=== PATIENT | female | born 1980 | race Caucasian/White ===

== ENCOUNTER 2018-08-12 08:57 | Emergency (ER) | payer BC ==
[2018-08-12 09:07] VITALS: BP 128/87
--- NOTE | 2018-08-12 09:34 | UC ---
Throat Pain/Nasal Jarad HPI - HPI Summary HPI Summary: 38 y/o female with no PMH, no medications presents with throat pain x 24 hours , ear pain L>R, mild. nasal/ sinus congestions, no fever, chills. no body aches. Concerned about strep throat. - History of Current Complaint Chief Complaint: UCGeneralIllness Stated Complaint: SORE THROAT, EAR PAIN Time Seen by Provider: 08/12/18 09:18 Hx Obtained From: Patient Hx Last Menstrual Period: 2 weeks ago ?: No Onset/Duration: Sudden Onset, Lasting Days Severity: Moderate Pain Intensity: 4 Pain Scale Used: 0-10 Numeric Associated Signs & Symptoms: Positive: Dysphagia Related History: Seasonal Allergies - Allergies/Home Medications Allergies/Adverse Reactions: Allergies Allergy/AdvReac Type Severity Reaction Status Date / Time No Known Allergies Allergy Verified 08/12/18 09:07 Home Medications: Home Medications Dm/Acetaminophen/Doxylamine [Night Cold-Flu Relief Liq Gel] 1 each PO 08/12/18 [ History] PMH/Surg Hx/FS Hx/Imm Hx Previously Healthy: Yes - Surgical History Surgical History: None - Family History Known Family History: Positive: None - Social History Alcohol Use: Rare Substance Use Type: None Smoking Status (MU): Never Smoked Tobacco Review of Systems All Other Systems Reviewed And Are Negative: Yes Constitutional: Positive: Fatigue ENT: Positive: Sore Throat, Ear Ache, Sinus Congestion Is Patient Immunocompromised?: No Physical Exam Triage Information Reviewed: Yes Appearance: Well-Appearing, No Pain Distress, Well-Nourished Vital Signs: Initial Vital Signs Temp 97.1 F 08/12/18 09:03 Pulse 62 08/12/18 09:03 Resp 16 08/12/18 09:03 BP 128/87 08/12/18 09:03 Pulse Ox 100 08/12/18 09:03 Eyes: Positive: Conjunctiva Clear ENT: Positive: Pharyngeal erythema - minimal no exudates, Nasal congestion, TMs normal, Sinus tenderness - minimal. Negative: TM bulging, TM dull, TM red, Tonsillar swelling, Tonsillar exudate Neck: Positive: Supple, Nontender, No Lymphadenopathy. Negative: Nuchal Rigidity Respiratory: Positive: Chest non-tender, Lungs clear, Normal breath sounds, No respiratory distress, No accessory muscle use. Negative: Crackles, Rhonchi, Stridor, Wheezing Cardiovascular: Positive: RRR, No Murmur Psychological Exam: Normal Throat Pain/Nasal Course/Dx - Course Course Of Treatment: DId not meat criteria fr strep testing, conservative treatment, follow up with primary if no improvement within 2-3 days - Differential Dx/Diagnosis Differential Diagnosis/HQI/PQRI: Pharyngitis, Sinusitis, Tonsillitis, URI Provider Diagnosis: Upper respiratory infection Discharge - Sign-Out/Discharge Documenting (check all that apply): Patient Departure All imaging exams completed and their final reports reviewed: No Studies - Discharge Plan Condition: Good Disposition: HOME Patient Education Materials: Upper Respiratory Infection (ED) Referrals: No Primary Care Phys,NOPCP [Primary Care Provider] - Additional Instructions: - Increase fluids - Motrin as needed for sinus pressure - HUmidifier at night to help with drying out mucous membranes/ cough/ throat irritation - Over the counter medications for throat pain- cough drops, throat sprays - Billing Disposition and Condition Condition: GOOD Disposition: Home
== END 2018-08-12 09:30 | disposition home or self-care (01) ==
LOC: UCEAST 08:57
DX: J06.9 Acute upper respiratory infection, unspecified (principal)
CPT/HCPCS: 99211; G0463

== ENCOUNTER 2018-08-18 09:34 | Emergency (ER) | payer BC ==
[2018-08-18 10:10] VITALS: BP 117/78
--- NOTE | 2018-08-18 10:31 | UC ---
Throat Pain/Nasal Jarad HPI - HPI Summary HPI Summary: 38 yo female presents with sore throat, sinus pain/pressure/congestion, and dry cough for the last week. She tells me that she was seen her about 6 days ago and advised to try OTC methods and symptoms likely viral. Since that time her symptoms have worsened and OTC methods are not helping. She had been taking dayquill, nyquill, sudafed, and mucinex. Denies fever, chills, SOB, n/v, rash. - History of Current Complaint Chief Complaint: UCGeneralIllness Stated Complaint: SORE THROAT, PRODUCTIVE COUGH Time Seen by Provider: 08/18/18 10:19 Hx Obtained From: Patient Hx Last Menstrual Period: 08/02/18 Onset/Duration: Gradual Onset Severity: Moderate Pain Intensity: 5 Pain Scale Used: 0-10 Numeric Cough: Nonproductive - Allergies/Home Medications Allergies/Adverse Reactions: Allergies Allergy/AdvReac Type Severity Reaction Status Date / Time No Known Allergies Allergy Verified 08/18/18 10:10 Home Medications: Home Medications Norgestimate-Ethinyl Estradiol [Tri Femynor 28 Tablet] 1 tab PO DAILY 08/18/18 [ History Confirmed 08/18/18] PMH/Surg Hx/FS Hx/Imm Hx Endocrine History: Hypothyroidism - Surgical History Surgical History: None - Family History Known Family History: Positive: None - Social History Occupation: Employed Full-time Lives: With Family Alcohol Use: Rare Substance Use Type: None Smoking Status (MU): Never Smoked Tobacco Review of Systems All Other Systems Reviewed And Are Negative: Yes Constitutional: Positive: Negative Skin: Positive: Negative Eyes: Positive: Negative ENT: Positive: Sore Throat, Nasal Discharge, Sinus Congestion, Sinus Pain/ Tenderness Respiratory: Positive: Cough Cardiovascular: Positive: Negative Gastrointestinal: Positive: Negative Neurovascular: Positive: Negative Neurological: Positive: Negative Psychological: Positive: Negative Physical Exam - Summary Physical Exam Summary: GENERAL: NAD. WDWN. No pain distress. SKIN: No rashes, sores, lesions, or open wounds. HEENT: Head: AT/NC Eyes: EOM intact. Conjunctiva clear without inflammation or discharge. Ears: Hearing grossly normal. TMs intact, no bulging, erythema, or edema. Nose: Nasal mucosa mildly swollen and erythematous with clear discharge. TTP maxillary sinus. Positive post nasal drip Throat: Posterior oropharynx without exudates, erythema, or tonsillar enlargement. Uvula midline. NECK: Supple. Nontender. No lymphadenopathy. CHEST: CTAB. No r/r/w. No accessory muscle use. Breathing comfortably and in no distress. CV: RRR. Without m/r/g. Pulses intact. NEURO: Alert. PSYCH: Age appropriate behavior. Triage Information Reviewed: Yes Vital Signs: Initial Vital Signs Temp 98.8 F 08/18/18 10:08 Pulse 79 08/18/18 10:08 Resp 16 08/18/18 10:08 BP 117/78 08/18/18 10:08 Pulse Ox 100 08/18/18 10:08 Vital Signs Reviewed: Yes Throat Pain/Nasal Course/Dx - Course Course Of Treatment: Given length of symptoms and failure of OTC treatments, will treat with anbx for sinusitis/bronchitis. - Differential Dx/Diagnosis Provider Diagnosis: Sinusitis Discharge - Sign-Out/Discharge Documenting (check all that apply): Patient Departure All imaging exams completed and their final reports reviewed: No Studies - Discharge Plan Condition: Stable Disposition: HOME Prescriptions: Azithromycin TAB* [Zithromax TAB (Z-RUBEN) 250 mg #6 tabs] 2 tab PO .TODAY, THEN 1 DAILY #1 ruben Benzonatate CAP* [Tessalon 100 MG CAP*] 100 mg PO TID PRN #21 cap PRN Reason: Cough Patient Education Materials: Acute Bronchitis (ED) Forms: *Work Release Referrals: No Primary Care Phys,NOPCP [Primary Care Provider] - Additional Instructions: If you develop a fever, shortness of breath, chest pain, new or worsening symptoms - please call your PCP or go to the ED. Continue your [id number] medications - Billing Disposition and Condition Condition: STABLE Disposition: Home
== END 2018-08-18 10:38 | disposition home or self-care (01) ==
LOC: UCEAST 09:34
DX: J32.9 Chronic sinusitis, unspecified (principal)
CPT/HCPCS: 99212; G0463

== ENCOUNTER 2018-12-16 10:30 | Emergency (ER) | payer BC ==
[2018-12-16 10:39] VITALS: BP 148/85
--- NOTE | 2018-12-16 10:52 | UC ---
Neck Pain HPI - HPI Summary HPI Summary: Patient developed left-sided neck pain following a cross fit session. It was mild at the time with no numbness or tingling in her extremities. She then went on the next day to do numerous sessions of CrossFit movements which worsened the pain. She had a mild headache the first day resolved spontaneously. She denies any numbness or tingling in her extremities today. She states today the left-sided neck pain is worse, however she does plan to run a 10 K race tomorrow. - History of Current Complaint Chief Complaint: UCUpperExtremity Stated Complaint: NECK PAIN Time Seen by Provider: 12/16/18 10:36 Hx Obtained From: Patient Hx Last Menstrual Period: 12/11/18 ?: No Onset/Duration Of Injury/Symptoms: Days - Pain started 2 days ago following a cross fit session. Mechanism Of Injury: No Known Trauma Timing: Constant Onset/Duration: Gradual Onset, Still Present Severity: Moderate - It was resolving on its own however and went on to do several CrossFit sessions yesterday. Pain Intensity: 8 Location: Diffuse - Left side of neck. Character: Aching, Stiff Alleviating Factors: Position Associated Signs & Symptoms: Positive: Headache - Patient states she had a mild headache the day before the muscle strain however that resolved spontaneously. - Risk Factors Meningitis Risk Factors: Negative - Allergies/Home Medications Allergies/Adverse Reactions: Allergies Allergy/AdvReac Type Severity Reaction Status Date / Time No Known Allergies Allergy Verified 12/16/18 10:40 Home Medications: Home Medications Ibuprofen TAB* [Advil TAB*] 600 mg PO Q6H PRN 12/16/18 [History Confirmed ] [place]-3 Fatty Acids/Fish Oil [Fish Oil 1,000 mg Softgel] 1 cap PO DAILY [History Confirmed 12/16/18] PMH/Surg Hx/FS Hx/Imm Hx Previously Healthy: Yes - Surgical History Surgical History: None - Family History Known Family History: Positive: None - Social History Lives: With Family Alcohol Use: Rare Substance Use Type: None Smoking Status (MU): Never Smoked Tobacco Review of Systems All Other Systems Reviewed And Are Negative: Yes Musculoskeletal: Positive: Other: - Left sided neck pain with movement to the right or left. Neurological: Positive: Negative - She had a mild headache the day before the muscle strain but that result spontaneously. She does not have a headache today. Is Patient Immunocompromised?: No Physical Exam Triage Information Reviewed: Yes Appearance: Well-Appearing, No Pain Distress, Well-Nourished Vital Signs: Initial Vital Signs Temp 97.0 F 12/16/18 10:35 Pulse 47 12/16/18 10:35 Resp 16 12/16/18 10:35 BP 148/85 12/16/18 10:35 Pulse Ox 100 12/16/18 10:35 Vital Signs Reviewed: Yes Eye Exam: Normal ENT Exam: Normal ENT: Positive: Hearing grossly normal, TMs normal, Uvula midline Dental Exam: Normal Neck: Positive: Supple, No Lymphadenopathy, Other: - Tenderness on palpation of the left sternocleidomastoid muscle, no bruising, erythema, swelling or deformity is noted. Respiratory Exam: Normal Cardiovascular Exam: Normal Musculoskeletal: Positive: Strength Intact, Other: - Limited range of motion to the right or left approximate 45. Good range of motion with flexion and extension. C-spine is nontender Neurological: Positive: Alert - PERRLA, EOMI, Cranial nerves II through XII are intact, good arm and leg strength against resistance, good peripheral pulses neuro sensation capillary refill. Reflexes +2 at the knee, Muscle Tone Normal Psychological Exam: Normal Skin Exam: Normal Neck Pain Course/Dx - Course Course Of Treatment: Patient is fairly comfortable here. She does have limited side to side range of motion due to strain of the left sternocleidomastoid muscle. She was given a prescription for Motrin 600 mg by mouth every 8 hours with food. She may apply heat to the sore area. I advised her not to do any CrossFit until this has resolved however she is running a 10K race tomorrow. She states she is going to see her massage therapist on Tuesday. I advised her the importance of giving this a rest for a few days until it's resolved. She refused an injection of Toradol for pain. - Differential Dx/Diagnosis Provider Diagnosis: Cervical muscle strain Discharge - Sign-Out/Discharge Documenting (check all that apply): Patient Departure All imaging exams completed and their final reports reviewed: No Studies - Discharge Plan Condition: Fair Disposition: HOME Prescriptions: Ibuprofen TAB* [Motrin TAB* 600 MG] 600 mg PO Q8H PRN #30 tab PRN Reason: Pain Patient Education Materials: Cervical Strain (DC) Referrals: Melinda Umanzor NP [Primary Care Provider] - Additional Instructions: Apply heat to the sore area. Take the current every 6-8 hours with food. Avoid Movements that cause pain. It would be desirable if you did not do Upper Body Crossfit movements. Follow-up with your massage therapist on Tuesday and your primary care provider in 3 or 4 days if no improvement. Go to the emergency room if you have any numbness or tingling in the extremities or worsening headache. - Billing Disposition and Condition Condition: FAIR Disposition: Home
== END 2018-12-16 11:00 | disposition home or self-care (01) ==
LOC: UCEAST 10:30
DX: S16.1XXA Strain of muscle, fascia and tendon at neck level, initial encounter (principal); X58.XXXA Exposure to other specified factors, initial encounter; Y93.B9 Activity, other involving muscle strengthening exercises; Y92.9 Unspecified place or not applicable
CPT/HCPCS: 99212; G0463

== ENCOUNTER 2019-06-06 18:59 | Emergency (ER) | payer BC ==
--- NOTE | 2019-06-06 20:11 | UC ---
General HPI - HPI Summary HPI Summary: Patient is a 38-year-old female with a history of hypothyroidism. Patient states this morning she woke up at 2 AM to use the bathroom. Patient states when she rolled out of bed she suddenly felt very dizzy like the room was spinning. Patient states she was falling to the right. Patient states she went back to bed when she woke up when her alarm when off, she turned her head and again had the similar symptoms. Patient states since this time, symptoms have continued and she has nausea. Patient denies chest pain or shortness of breath. No vision changes. Patient a mild headache earlier but improved now. Patient denies fever, chills, rash. Patient denies any extremity weakness or paresthesia. Patient states approximately 8 years ago she had something similar was diagnosed with vertigo. Patient states she symptoms resolved on their own. PT waited to come in until her was able to drive her. 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 Patient's age she is not . Medications reviewed this visit. - History of Current Complaint Chief Complaint: UCDizziness Stated Complaint: DIZZY Time Seen by Provider: 06/06/19 20:06 Hx Obtained From: Patient Hx Last Menstrual Period: 2 weeks ago Onset/Duration: Sudden Onset Onset Severity: Mild Current Severity: Mild Pain Intensity: 2 - Allergy/Home Medications Allergies/Adverse Reactions: Allergies Allergy/AdvReac Type Severity Reaction Status Date / Time No Known Allergies Allergy Verified 06/06/19 19:30 PMH/Surg Hx/FS Hx/Imm Hx Previously Healthy: Yes Endocrine History: Hypothyroidism - Surgical History Surgical History: None - Family History Known Family History: Positive: Non-Contributory - Social History Occupation: Employed Full-time Lives: With Family Alcohol Use: Rare Substance Use Type: None Smoking Status (MU): Never Smoked Tobacco Review of Systems All Other Systems Reviewed And Are Negative: Yes Constitutional: Positive: Negative Skin: Positive: Negative Eyes: Positive: Negative. Negative: Blurred Vision, Diplopia, Drainage, Eye Redness, Photophobia ENT: Positive: Negative Respiratory: Positive: Negative Cardiovascular: Positive: Negative Gastrointestinal: Positive: Nausea. Negative: Abdominal Pain, Vomiting Genitourinary: Positive: Negative Motor: Positive: Negative Neurovascular: Positive: Negative Musculoskeletal: Positive: Negative Neurological: Positive: Headache - mild - improving, Other - dizziness Is Patient Immunocompromised?: No Physical Exam - Summary Physical Exam Summary: Vital Signs Reviewed: Yes A+Ox3, tired appearing Eyes: Conjunctiva Clear, CANDIS. EOM intact and full, 3 beat nystagmus - horizontal to the right - no photophobia ENT: Hearing grossly normal TM x 2 visualized - scant fluid on left , turbinate wnl mmoist, uvula midline, no exudate, no erythema Neck: Positive: Supple Respiratory: Positive: No respiratory distress, No accessory muscle use + CTA throughout no w/r Cardiovascular: RRR nl s1, s2 no m/r CBT <2 sec, no bruits b/l, no temporal arteritis abd soft + BS nt/nd no guarding, no distension Musculoskeletal Exam: NELSON x 4 without difficulty Strength Intact, ROM Intac, ambulatory without difficulty Neurological: Positive: Alert, + sensation throughout CN 2-12 intact, nystagmus to right - extinguish, ambulatory without support Psychological: Positive: Normal Response To examiner Skin: Positive: no rash, no ecchymosis Triage Information Reviewed: Yes Vital Signs: Initial Vital Signs Temp 97.5 F 06/06/19 19:31 Pulse 66 06/06/19 19:31 Resp 18 06/06/19 19:31 BP 137/89 06/06/19 19:31 Pulse Ox 100 06/06/19 19:31 Diagnostics - EKG Cardiac Rate: Bradycardia Cardiac Rhythm: Sinus: Normal Ectopy: None ST Segment: Normal EKG Comparison: Other - None to compare Re-Evaluation - Re-Evaluation First Eval Change: Improved - Pt improving - nausea resolved - requesting crackers 500+ ml fluids in Second Eval Change: Improved - Pt tolerating cracker, states feels better - reviewed plan with pt/ -will dispense meclezine, zofran. work note to return Tue or Tuesday, rest pcp f/u strict return precautions Third Eval Comment: On vital reassessment - pt noted to be bradycardic - pt states resting heart rate typically 50s Pt without symptoms - no cp, lightheaded, vision changes, diaphoresis. will check EKG Fourth Eval Comment: EKG - sinus madeline - QTC 407 - Pt ambulated - no symptoms with ambulation. Pt HR increased to 80s - resting reverted to 40s. D/w pt and at length - may be related to zofran - will d/c order for zofran - I called pharmacy to cancel, RN restocked. will check cbc/cmp/thyroid/mag levels. pt out of work until cleared by PCP - note written. strict return precautions - pt and spouse comfortable and in agreement with plan. Pt without symptoms, dizziness/nausea resolved - ambulated without diffiiculty or symptoms Course/Dx - Course Course Of Treatment: Patient presents to urgent care stating that she woke up at 2:00 this morning with dizziness. Patient states the room is spinning. Patient states when she closes her eye symptoms improved. Patient with nausea but no vomiting. Patient a mild headache earlier that improved. Patient states she's been unable to eat or drink much today because of nausea. Patient denies any trauma. Patient states her left ear feels a little bit fall but no abigail pain. No upper respiratory symptoms. Patient with a history of vertigo and states this feels similar. Patient without chest pain shortness of breath lightheadedness vision changes. On exam vital signs are stable. Patient appears tired. Patient has 3 beat right sided nystagmus horizontal sting machine. Suspect this is peripheral vertigo. Discussed with patient treatment options. We'll place a line get some meclizine Zofran and reassess. 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 Patient comfortable in agreement with plan. Will closely reassess. - Diagnoses Provider Diagnosis: Dizziness, Nausea Discharge ED - Sign-Out/Discharge Documenting (check all that apply): Patient Departure All imaging exams completed and their final reports reviewed: No Studies - Discharge Plan Condition: Stable Disposition: HOME Prescriptions: Meclizine TAB* [Antivert 12.5 TAB*] 25 mg PO Q8HR #15 tab Patient Education Materials: Vertigo (ED), Bradycardia (ED) Forms: *Work Release Referrals: Prabhakar Dorsey MD [Primary Care Provider] - Additional Instructions: - Stay well hydrated. Drink plenty of non-alcoholic, non-caffinated beverage - frequent sips of fluids, popsicles can help with this - Okay to take medication every 8 hours as prescribed for dizziness -SLOWLY change position from lyiing to sitting, sitting to standing - get plenty of restful sleep - Consider taking decongestant (claritin-D, Tammy-D, Zyrtec-D) if your ears feel congested - you have a small amount of fluid in your left ear at today's examination - it does not appear infected - If you develop fever, worsening symptoms, lightheadedness, vision changes, chest pain, shortness of breath, rash or ANY other concerns it is recommended you go to the emergency department for further treatment and evaluation. - you had bloodwork drawn this evening - these results take 1-2 days to return. 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
[2019-06-06] MEDS ORDERED: NS 0.9% 1000 ML** 1,000 ML IV ONE (20:22)
[2019-06-06] MEDS ORDERED: Meclizine TAB* 12.5 MG PO ONE ×2 (20:22→20:57)
[2019-06-06] MEDS ORDERED: Ondansetron INJ* 2 MG/ML VIAL IV ONE (20:22)
[2019-06-06] MEDS ORDERED: Ondansetron ODT TAB* 4 MG PO ONE (20:57)
[2019-06-06 22:21] VITALS: BP 139/77
[2019-06-07 12:01] LABS: ABS Eosinophils 0.1 10^3/ul (0-0.6); ABS Lymphocytes 1.5 10^3/ul (1.0-4.8); ABS Monocytes 0.4 10^3/ul (0-0.8); ABS Neutrophils 5.7 10^3/ul (1.5-7.7); Eosinophil % 0.7 %; Hematocrit 42 % (35-47); Lymphocyte % 19.8 %; Mean Corpuscular HGB Conc 33 g/dL (31-36); Mean Corpuscular Hemoglobin 31 pg (27-31); Mean Corpuscular Volume 93 fL (80-97); Mean Platelet Volume 10.2 fL (7.4-10.4); Nucleated Red Blood Cells % 0.1; Platelet Count 178 10^3/uL (150-450); Red Blood Count 4.51 10^6 /uL (3.70-4.87); Red Cell Distribution Width 13 % (10-15); White Blood Count 7.7 10^3/uL (3.5-10.8)
[2019-06-07 12:29] LABS: TSH (Thyroid Stimulating Horm) 0.91 mcIU/mL (0.34-5.60)
[2019-06-07 15:34] LABS: Albumin 3.7 g/dL (3.2-5.2); Calcium 8.5 mg/dL (8.6-10.3); Magnesium 2.1 mg/dL (1.9-2.7); Potassium 4.3 mmol/L (3.5-5.0); Total Bilirubin 0.6 mg/dL (0.2-1.0)
[2019-06-07 15:40] LABS: Albumin/Globulin Ratio 1.4 (1-3); BUN/Creatinine Ratio 20.4 (8-20); EGFR African American 76.1 (>60); EGFR Non-African American 62.9 (>60); Globulin 2.7 g/dL (2-4); Total Protein 6.4 g/dL (6.4-8.9)
[2019-06-07 17:37] LABS: Free T4 0.82 ng/dL (0.61-1.12)
== END 2019-06-06 22:15 | disposition home or self-care (01) ==
LOC: UCEAST 18:59
DX: R42 Dizziness and giddiness (principal); R11.0 Nausea; E03.9 Hypothyroidism, unspecified
CPT/HCPCS: 36415; 80053; 83735; 84439; 84443; 85025; 96360; 96374; 99212; A9270-GY; G0463; J2405

== ENCOUNTER 2019-09-03 09:33 | Observation (INO) | payer BC ==
--- NOTE | 2019-09-03 09:55 | ED ---
Abdominal Pain/Female - HPI Summary HPI Summary: 39 year old F arriving via private car complains of sharp abdominal pain that started at epigastrium and has moved to RUQ and RLQ, with RLQ being worse than RUQ, since yesterday evening 20:00. Unable to get comfortable last night in bed and was unable to sleep well. No nausea/vomiting, diarrhea, left sided abdominal pain, cough. Last bowel movement yesterday. No abdominal surgeries. Symptoms rated 8/10 in severity. Symptoms aggravated by taking a deep breath and bending right leg. Symptoms alleviated by nothing. No surgical hx. Medications reviewed. LNMP 2 weeks ago. No abdominal vaginal bleeding or pain with urination. - History of Current Complaint Chief Complaint: EDAbdPain Stated Complaint: RIGHT SIDE ABDOMINAL PAIN PER PT Time Seen by Provider: 09/03/19 09:45 Hx Obtained From: Patient Hx Last Menstrual Period: 2 weeks ago Onset/Duration: Lasting Hours, Still Present Timing: Constant Severity Currently: Severe Pain Intensity: 8 Pain Scale Used: 0-10 Numeric Location: Discrete At: RUQ, Discrete At: RLQ, Epigastric Aggravating Factor(s): Movement, Deep Breaths Alleviating Factor(s): Nothing Associated Signs and Symptoms: Negative: Cough, Nausea, Vomiting, Diarrhea Allergies/Adverse Reactions: Allergies Allergy/AdvReac Type Severity Reaction Status Date / Time No Known Allergies Allergy Verified 09/03/19 09:37 Home Medications: Home Medications Cholecalciferol TAB* [Vitamin D TAB*] 1,000 unit PO DAILY 09/03/19 [History Confirmed 09/03/19] PMH/Surg Hx/FS Hx/Imm Hx Endocrine/Hematology History: Reports: Hx Thyroid Disease - hypo Denies: Hx Diabetes Cardiovascular History: Denies: Hx Hypertension, Hx Pacemaker/ICD Respiratory History: Denies: Hx Asthma, Hx Chronic Obstructive Pulmonary Disease (COPD) GI History: Denies: Hx Ulcer History: Denies: Hx Renal Disease Sensory History: Denies: Hx Hearing Aid Psychiatric History: Denies: Hx Panic Disorder - Cancer History Hx Chemotherapy: No Hx Radiation Therapy: No - Surgical History Surgical History: None Infectious Disease History: No Infectious Disease History: Denies: Hx Hepatitis, Hx Human Immunodeficiency Virus (HIV), Traveled Outside the [place] in Last 30 Days - Family History Known Family History: Positive: Other - NEG: Breast CA - Social History Alcohol Use: Rare Substance Use Type: Reports: None Hx Tobacco Use: No Smoking Status (MU): Never Smoked Tobacco Review of Systems Negative: Cough Positive: Abdominal Pain. Negative: Vomiting, Diarrhea, Nausea All Other Systems Reviewed And Are Negative: Yes Physical Exam - Summary Physical Exam Summary: Constitutional: Well-developed, Well-nourished, Alert. (-) Distressed Skin: Warm, Dry HENT: Normocephalic; Atraumatic Eyes: Conjunctiva normal Neck: Musculoskeletal ROM normal neck. (-) JVD, (-) Stridor, (-) Nuchal rigidity Cardio: Rhythm regular, rate normal, Heart sounds normal; Intact distal pulses; Radial pulses are 2+ and symmetric. (-) Murmur Pulmonary/Chest wall: Effort normal. (-) Respiratory distress, (-) Wheezes, (-) Rales Abd: RLQ tenderness, positive tenderness at Mcburney's point, positive obturator sign Musculoskeletal: (-) Edema Lymph: (-) Cervical adenopathy Neuro: Alert, Oriented x3 Psych: Mood and affect Normal Triage Information Reviewed: Yes Vital Signs On Initial Exam: Initial Vitals Temp Pulse Resp BP Pulse Ox 97.2 F 58 16 129/95 98 09/03/19 09:34 09/03/19 09:34 09/03/19 09:34 09/03/19 09:34 09/03/19 09:34 Vital Signs Reviewed: Yes Procedures - Sedation Patient Received Moderate/Deep Sedation with Procedure: No Diagnostics - Vital Signs Vital Signs Temp Pulse Resp BP Pulse Ox 09/03/19 09:34 97.2 F 58 16 129/95 98 - Laboratory Result Diagrams: 09/03/19 09:51 09/03/19 09:51 Lab Statement: Any lab studies that have been ordered have been reviewed, and results considered in the medical decision making process. - CT ABD/PEL CT Interpretation Completed By: Radiologist Summary of CT Findings: FINDINGS CONSISTENT WITH ACUTE APPENDICITIS. ED PHYSICIAN HAS REVIEWED THIS REPORT. Re-Evaluation - Re-Evaluation First Eval Re-Evaluation Time: 13:36 Comment: informed of Abd/Pel CT findings acute appendicitis Abdominal Pain Fem Course/Dx - Course Course Of Treatment: 39 y/o female presents with epigastric and right lower quadrant abdominal pain. - physical exam w right lower quadrant tenderness. Differential includes appendicitis, ovarian pathology such as cyst versus torsion (lower suspicion torsion), low suspicion for PID given lack of vaginal discharge or fevers. Also consider renal stone, UTI/pyelonephritis. We'll check a CT abdomen and pelvis, labs including a CBC to assess for infection and HCG. - Diagnoses Provider Diagnoses: Appendicitis - Provider Notifications Discussed Care Of Patient With: Prosper Caro Time Discussed With Above Provider: 13:37 Instructed by Provider To: Admit As Inpatient Discharge ED - Sign-Out/Discharge Documenting (check all that apply): Patient Departure - Discharge Plan Condition: Stable Disposition: ADMITTED TO [facility] Referrals: Prabhakar Dorsey MD [Primary Care Provider] - - Billing Disposition and Condition Condition: STABLE Disposition: Admitted to [facility] - Attestation Statements Document Initiated by Nicola: Yes Documenting Scribe: Janet Barraza Provider For Whom Kamalae is Documenting (Include Credential): Tracey Portillo MD Scribe Attestation: IJanet, scribed for Tracey Portillo MD on 09/03/19 at 1343. Scribe Documentation Reviewed: Yes Provider Attestation: The documentation as recorded by the scribeJanet accurately reflects the service I personally performed and the decisions made by , Tracey Portillo MD Status of Scribe Document: Viewed
[2019-09-03 09:59] LABS: ABS Lymphocytes 1.2 10^3/ul (1.0-4.8); ABS Monocytes 0.8 10^3/ul (0-0.8); ABS Neutrophils 10.8 10^3/ul (1.5-7.7); Eosinophil % 0.1 %; Hematocrit 42 % (35-47); Hemoglobin 14.2 g/dL (12.0-16.0); Lymphocyte % 9.2 %; Mean Corpuscular HGB Conc 34 g/dL (31-36); Mean Corpuscular Hemoglobin 31 pg (27-31); Mean Corpuscular Volume 91 fL (80-97); Mean Platelet Volume 10.1 fL (7.4-10.4); Nucleated Red Blood Cells % 0.1; Platelet Count 155 10^3/uL (150-450); Red Blood Count 4.59 10^6 /uL (3.70-4.87); Red Cell Distribution Width 13 % (10-15); White Blood Count 12.9 10^3/uL (3.5-10.8)
[2019-09-03 10:20] LABS: ALT 17 U/L (7-52); AST 22 U/L (13-39); Albumin 3.9 g/dL (3.2-5.2); Albumin/Globulin Ratio 1.3 (1-3); Alkaline Phosphatase 54 U/L (34-104); Anion Gap 6 mmol/L (2-11); BUN/Creatinine Ratio 18.3 (8-20); Blood Urea Nitrogen 19 mg/dL (6-24); CO2 Carbon Dioxide 27 mmol/L (22-32); Chloride 103 mmol/L (101-111); EGFR African American 70.7 (>60); EGFR Non-African American 58.4 (>60); Globulin 3.1 g/dL (2-4); Glucose 101 mg/dL (70-100); Potassium 4.2 mmol/L (3.5-5.0); Sodium 136 mmol/L (135-145)
[2019-09-03 10:23] LABS: HCG Pregnancy < 0.60 mIU/mL
[2019-09-03] MEDS ORDERED: Iodixanol* (CONTRAST) 320 MG/ML 100 ML SDV IV ONE (11:44)
[2019-09-03] MEDS ORDERED: NS 0.9% 1000 ML** 1,000 ML IV ONE (13:51)
[2019-09-03] MEDS ORDERED: Piperacillin/Tazobac ADVAN(*) 3.375 GM in NS 0.9% 100 ML* 100 ML IVPB ONE (14:38)
--- NOTE | 2019-09-03 15:18 | HP ---
History of Present Illness - History of Present Illness Reason for Visit: Acute Appendicitis History of Present Illness: 39 yo female with a 1 day hx of abdominal pain, originally in the epigastrum then moved to the right side of the abdomen. Hurts to take a deep breath Denies nausea, vomiting, diarrhea. Last meal was last night, last BM was yesterday. No Fevers - Past Medical History Endocrine: Hypothyroidism - Past Surgical History Past Surgical History: None - Past Family History Family History: None - Past Social History Smoke: No Alcohol: Occasional Drugs: None Lives: With Family Domestic Violence: Negative - Health Maintenance Health Maintenance: Cholesterol Review of Systems - Review of Systems Gastrointestinal: Positive: Abdominal Pain - Medications/Allergies Allergies/Adverse Reactions: Allergies Allergy/AdvReac Type Severity Reaction Status Date / Time No Known Allergies Allergy Verified 09/03/19 09:37 Exam - Exam Vital Signs: Vital Signs (72 hours) 09/03/19 09/03/19 09/03/19 09:34 09:56 09:58 Temperature 97.2 F Pulse Rate 58 57 54 Respiratory 16 Rate Blood Pressure 129/95 137/89 (mmHg) O2 Sat by Pulse 98 100 100 Oximetry 09/03/19 09/03/19 09/03/19 10:00 10:28 10:58 Temperature Pulse Rate 59 51 53 Respiratory Rate Blood Pressure 126/84 143/86 (mmHg) O2 Sat by Pulse 100 100 100 Oximetry 09/03/19 09/03/19 09/03/19 11:00 12:00 13:00 Temperature Pulse Rate 55 50 55 Respiratory Rate Blood Pressure (mmHg) O2 Sat by Pulse 100 100 98 Oximetry General: Alert, Oriented x3, Cooperative, No acute distress HEENT: Atraumatic, EOMI Lungs: Clear to auscultation Cardiovascular: Regular rate Abdomen: Soft, Other - Referred pain to RLQ when palpating LLQ, + pain at McBurney's point, + Evasn's Extremities: No clubbing, No cyanosis, No edema Skin: No rashes Neurological: Normal speech Psych/Mental Status: Mental status NL Assessment/Plan - Assessment/Plan Assessment: 39 yo female with a 1 day history of abdominal pain, originally epigastric, but now focussed in the right abdomen Plan: NPO, IVF, IV ABX, Consent for laporoscopic appendectomy by Dr Caro
[2019-09-03] MEDS ORDERED: fentaNYL* 50 MCG/ML 2 ML VIAL (100 MCG VIAL) IV PRN (19:49)
[2019-09-03] MEDS ORDERED: Ondansetron INJ* 2 MG/ML VIAL ONE (21:46)
[2019-09-03] MEDS ORDERED: Propofol* 10 MG/ML 20 ML BTL ONE (21:46)
[2019-09-03] MEDS ORDERED: Rocuronium* 10 MG/ML VIAL ONE (21:46)
[2019-09-03] MEDS ORDERED: Midazolam* 1 MG/ML 2 ML VIAL (2 MG) ONE (21:46)
[2019-09-03] MEDS ORDERED: KETAMINE HCL* 50 MG/ML 10 ML VIAL ONE (21:46)
[2019-09-03] MEDS ORDERED: Ketorolac INJ* 30 MG/ML 1 ML VIAL ONE (21:46)
[2019-09-03] MEDS ORDERED: Dexamethasone IV* 4 MG/ML 1 ML (4 MG) ONE (21:46)
[2019-09-03] MEDS ORDERED: fentaNYL* 50 MCG/ML 2 ML VIAL (100 MCG VIAL) ONE (21:46)
[2019-09-03] MEDS ORDERED: Lidocaine 2% PF * 5 ML VIAL ONE (21:46)
[2019-09-03] MEDS ORDERED: ZOSYN 3.375 GM x ONE DOSE over 30 miuntes IVPB ×2 (22:00)
[2019-09-03] MEDS ORDERED: Famotidine IV* 10 MG/ML 2 ML (20 mg) IV SLOW PU ONE (22:05)
[2019-09-03] MEDS ORDERED: Dexamethasone IV* 4 MG/ML 1 ML (4 MG) IV SLOW PU ONE (22:06)
[2019-09-03] MEDS ORDERED: oxyCODONE/Acetamin 5/325 MG* TAB PO PRN (23:37)
[2019-09-03] MEDS ORDERED: Ondansetron INJ* 2 MG/ML VIAL IV PRN (23:37)
--- NOTE | 2019-09-03 23:37 | OP ---
Operative Report - Blank - Operative Report Date of Operation: 09/03/19 Note: Pre-OP Diagnoses: acute appendicitis Post-op Diagnosis: same Procedure: Laparoscopic appendectomy Surgeon: Gordo Asst: none Anethesia: MARGARETTEA EBL: minimal IVF: crystalloid Specimen: appendix Drains: none
[2019-09-03] MEDS ORDERED: Lactated Ringers 1000 ML Bag* 1,000 ML IV SCH (23:45)
[2019-09-03] MEDS ORDERED: DiMENhydriNATE IV* 50 MG/ML VIAL IV PUSH PRN (23:55)
[2019-09-03] MEDS ORDERED: Naloxone* 0.4 MG/ML 1 ML VIAL IV PRN (23:55)
[2019-09-03] MEDS ORDERED: HYDROmorphone INJ1* 1 MG/ML SYRINGE IV PRN (23:55)
[2019-09-04] MEDS: fentaNYL* 50 MCG/ML 2 ML VIAL (100 MCG VIAL) IV PRN ×2 (00:28→00:45)
[2019-09-04] MEDS ORDERED: Levothyroxine TAB* 50 MCG TAB PO SCH (06:00)
--- NOTE | 2019-09-04 06:53 | OP ---
CC: [facility]; Primary Care Physician OPERATIVE REPORT: DATE OF OPERATION: 09/03/19 DATE OF : 76 SURGEON: Prosper Caro MD IMPREGNATING TANK OPERATOR: None. ANESTHESIOLOGIST: Dr. Morse. ANESTHESIA: General. PRE-OP DIAGNOSIS: Acute appendicitis. POST-OP DIAGNOSIS: Acute appendicitis. OPERATIVE PROCEDURE: Laparoscopic appendectomy. ESTIMATED BLOOD LOSS: Minimal. FLUIDS: Minimal crystalloid fluid given. SPECIMENS: Appendix, nonperforated. DRAINS: None. DESCRIPTION OF PROCEDURE: The patient was identified in the preoperative area. I discussed the case . I went over the risks, benefits, and alternatives to laparoscopic appendectomy. She had been seen by MANUEL Cabrera and his workup was discussed. The patient understood the risks, benefits, and alterna tives. We spoke about the alternatives, watchful waiting and antibiotics. I did not recommend this at this point. The patient agreed to proceed with surgery. We spoke about the possible complication s which include but not limited to bleeding, infection, need for open procedure, possible need for ad ditional surgeries, possible injury to adjacent organs. Consent was signed and the patient was austin stallworth. She was taken to the operating room, placed on the operating table in supine position. Preoperative antibiotics were given. Sequential devices were placed in bilateral lower extremities and general an esthesia was induced. The patient's abdomen was prepped and draped in a standard surgical fashion. A time-out was performed. Folds of the umbilicus were elevated anteriorly and the Veress needle inserted into the abdominal cav ity which was then allowed to insufflate to pressure of 15 mmHg. The patient tolerated the insufflati on well. A right upper quadrant 12 mm optical trocar was then inserted and laparoscope inserted thro ugh this. There was no evidence of injury from the trocar insertion or from the Veress needle which was then removed. A 5-mm trocar was then placed in the umbilical site and a 5-mm in the suprapubic a lexus. Review of the abdomen showed scant free fluid. Suction railroad track mechanic was opened up. We then identified b ase of the appendix which showed inflammation without perforation that extended towards the lateral g utter and it was peritonealized without being retrocecal. The peritoneum was taken sharply with scissors on the lateral aspect. The medial aspect of the mesen try of the appendix was then taken with cautery. Next, a window was made at the base of the appendix through healthy tissue and the mesoappendix was t aken with 45-mm keller SHAYY stapling device. Next, we were able to swing the appendix up towards the midline having taken this mesoappendix off. We looked at staple line, there was no oozing. We then placed a 45-mm willingham SHAYY stapling device across the base of the appendix through healthy tissue and then placed it in an endoscopic retrieval bag. Again, the staple line appeared with good hemostasis and we suctioned fluid over the liver and then i n the pelvis and then allowed the positioning back to neutral obscuring the surgical site. We then r emoved the appendix in an endoscopic retrieval bag through the right upper quadrant port site. The a bdomen was allowed to collapse. Trocars were removed under direct vision and all 3 skin incisions we re reapproximated with 4-0 Monocryl subcuticular sutures followed by Steri-Strips and sterile dressin g. The patient tolerated the procedure well and was transferred to PACU in stable condition. [id number]/[facility] #: [id number]
[2019-09-04 07:45] VITALS: BP 100/53
--- NOTE | 2019-09-04 09:18 | PN ---
Progress Note - Progress Note Date of Service: 09/04/19 Note: S: POD #1. Still sleepy. Some pain, both RLQ and lower chest, with deep breath. Denies SOB. Admits to baseline resting HR of ~ 50. Has ambulated. Has not yet eaten. O: Vital Signs - 8 hr 09/04/19 09/04/19 09/04/19 01:36 02:07 02:25 Temperature 98.3 F 98.6 F Pulse Rate 60 42 Respiratory 17 20 16 Rate Blood Pressure 123/66 124/73 (mmHg) O2 Sat by Pulse 95 95 Oximetry 09/04/19 09/04/19 09/04/19 02:28 03:21 05:42 Temperature 98.5 F 98.3 F Pulse Rate 57 50 Respiratory 20 16 16 Rate Blood Pressure 129/70 113/67 (mmHg) O2 Sat by Pulse 97 98 Oximetry 09/04/19 09/04/19 07:30 07:44 Temperature 98.1 F 97.8 F Pulse Rate 42 78 Respiratory 16 16 Rate Blood Pressure 115/63 100/53 (mmHg) O2 Sat by Pulse 99 98 Oximetry Intake and Output Last 24 Hours 09/02/19 09/03/19 09/04/19 09/05/19 06:59 06:59 06:59 06:59 Intake Total 2900 Output Total 1350 Balance 1550 Weight 170 lb Intake: IV Fluids 2600 LR 1500 Oral 300 Output: Urine 1350 Heart: reg; madeline Lungs: clear Abd: lap sites clean and dry; +BS; soft; mild RLQ tenderness A: s/p lap appy, uncomplicated P: home today; instructions reviewed
--- NOTE | 2019-09-04 10:52 | DS ---
CC: Dr. Dorsey, at [facility]* DISCHARGE SUMMARY: DATE OF ADMISSION: 09/03/19. DATE OF DISCHARGE: 09/04/19. ATTENDING SURGEON: Dr. Prosper Caro* (MANUEL Fontana dictating). HOSPITAL COURSE: Please refer to admission history and physical and operative note for details. The patient was taken to the operating room in the early hours of 09/04/19 and underwent laparoscopic appendectomy for acute uncomplicated appendicitis with Dr. Caro. On the morning of discharge, she was doing well though had not yet had anything to eat. Pain was well controlled. See separate progress note from the same date. Instructions were reviewed regarding the diet, wound care, and activity. Followup will be next week in our office and she will call to make that appointment. She is discharged to home in good condition. MANUEL FONTANA [id number]/[facility] #: [id number] MTDD
== END 2019-09-04 11:05 | disposition home or self-care (01) ==
LOC: ED 09:33 → SSU 23:38 → INTOOBSV 23:38
PROVIDERS: ADMIT Surgery; ATTEND Surgery
DX: K35.80 Unspecified acute appendicitis (principal); R07.9 Chest pain, unspecified; R10.31 Right lower quadrant pain; Z79.899 Other long term (current) drug therapy; E03.9 Hypothyroidism, unspecified
CPT/HCPCS: 36415; 74177; 80053; 83690; 84702; 85025; 88304; 96361; 96365; 96372; 99284; A9270-GY; C1776; G0378; J1100; J1885; J2250; J2405; J2543; J2704; J3010; Q9967